=== PATIENT | female | born 1980 | race Two or more races ===

== ENCOUNTER 2025-07-15 15:12 | Emergency (ER) | payer MEDICAID, OTHER ==
[~2025-07-15] VITALS: Ht 170.2 cm; Wt 90.1 kg
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
[2025-07-15 15:59] LABS: Hematocrit 41.5 % (36.0-46.0); Hemoglobin 13.9 g/dL (12.2-16.2); Mean Corpuscular Hemoglobin 31.3 pg (28.0-32.0); Mean Corpuscular Volume 93.7 fL (80.0-100.0); Nucleated Red Blood Cells % 0.0 %
[2025-07-15 16:07] LABS: Chloride 104 mmol/L (98-107); Potassium 4.0 mmol/L (3.5-5.1); Sodium 141 mmol/L (136-145)
[2025-07-15 16:08] LABS: Anion Gap 9 (5-15); Calcium 9.2 mg/dL (8.7-10.4); Carbon Dioxide 28 mmol/L (20-31)
[2025-07-15 16:13] LABS: BUN/Creatinine Ratio 15.3 (10.0-20.0); Blood Urea Nitrogen 15 mg/dL (9-23)
[2025-07-15 16:14] LABS: Glucose 135 mg/dL (74-106)
[2025-07-15 16:35] LABS: Urine Protein, UAD TRACE (Negative)
[2025-07-15] MEDS ORDERED: NITR-87 PO (18:23)
[2025-07-15 18:44] VITALS: BP 152/86; PULSE 92; RESP 18; TEMP 98.1; O2SAT 98
== END 2025-07-15 18:53 | disposition home or self-care (01) ==
LOC: ER 15:12
DX: N93.8 Other specified abnormal uterine and vaginal bleeding (principal); N39.0 Urinary tract infection, site not specified; R60.9 Edema, unspecified
CPT/HCPCS: 36415; 80048; 81001; 83880; 84702; 85025